=== PATIENT | female | born 1970 | race Two or more races ===

== ENCOUNTER 2021-03-31 08:30 | Emergency (ER) | payer OTHER ==
[2021-03-31 08:41] VITALS: BP 143/79; PULSE 82; TEMP 98.2; BMI 29.2
[2021-03-31] MEDS ORDERED: KETOROLAC TROMETHAMINE 60 MG/2 ML VIAL IM ONE (09:28)
[2021-03-31] MEDS ORDERED: METHOCARBAMOL 500 MG TABLET PO ONE (09:28)
[2021-03-31] MEDS ORDERED: KETOROLAC TROMETHAMINE 60 MG/2 ML VIAL ONE (09:30)
[2021-03-31] MEDS ORDERED: METHOCARBAMOL 500 MG TABLET ONE (09:30)
[2021-03-31 11:08] LABS: PH,URINE 8.5 (5.0-8.0); URINE APPEARANCE Slightly Cloudy; URINE BILIRUBIN Negative (NEGATIVE); URINE COLOR Yellow; URINE GLUCOSE (UA) Negative (NEGATIVE); URINE KETONE Negative (NEGATIVE); URINE LEUK ESTERASE Negative (NEGATIVE); URINE NITRITE Negative (NEGATIVE); URINE PROTEIN Negative (NEGATIVE)
[2021-03-31 11:15] LABS: HCG,QUALITATIVE URINE Negative
[2021-03-31 11:18] LABS: EPI CELLS 56.5 /uL (0-25.1); HYALINE CASTS 0.63 /uL (0-3.1); URINE BACTERIA 355.9 /uL (0-1359); URINE WBC 23.1 /uL (0-25.8)
[2021-03-31 11:26] LABS: URINE BARBITURATES NEGATIVE (NEGATIVE)
[2021-03-31 11:27] LABS: URINE BENZODIAZEPINES NEGATIVE (NEGATIVE)
[2021-03-31 11:29] LABS: COCAINE, UR NEGATIVE (NEGATIVE)
[2021-03-31 11:30] LABS: METHADONE, UR POSITIVE (NEGATIVE); OPIATES, URI POSITIVE (NEGATIVE); PHENCYCLIDINE,URINE NEGATIVE (NEGATIVE); URINE AMPHETAMINES NEGATIVE (NEGATIVE); URINE CRYSTALS NONE SEEN /hpf
== END 2021-03-31 12:25 | disposition home or self-care (01) ==
LOC: JER 08:30
PROC: 3E0233Z Introduction of Anti-inflammatory into Muscle, Percutaneous Approach (ICD-10-PCS; principal; 2021-03-31)
DX: M54.5 Low back pain (principal)
CPT/HCPCS: 80307; 81003; 84703; 87086; 99284-25